=== PATIENT | female | born 1940 | race Caucasian/White ===

== ENCOUNTER 2017-07-22 07:58 | Day surgery (SDC) | payer OTHER ==
[2017-07-22] MEDS ORDERED: D5 LR 1000 ML 1,000 ML IV ONE (08:18)
[2017-07-22] MEDS ORDERED: FENTANYL INJ 100 mcg ONE (09:53)
[2017-07-22] MEDS ORDERED: VERSED ONE (09:53)
[2017-07-22] MEDS ORDERED: DIPRIVAN VIAL 10 ML ONE (09:53)
[2017-07-22 10:25] VITALS: BP 119/56
== END 2017-07-22 10:34 | disposition home or self-care (01) ==
LOC: SURG1 07:58
PROVIDERS: ATTEND Internal Medicine Gastroenterology
PROC: 0DB68ZX Excision of Stomach, Via Natural or Artificial Opening Endoscopic, Diagnostic (ICD-10-PCS; principal; 2017-07-22 11:15)
PROC: 0DB88ZX Excision of Small Intestine, Via Natural or Artificial Opening Endoscopic, Diagnostic (ICD-10-PCS; principal; 2017-07-22 11:15)
PROC: 0DJ08ZZ Inspection of Upper Intestinal Tract, Via Natural or Artificial Opening Endoscopic (ICD-10-PCS; principal; 2017-07-22 11:15)
DX: R10.13 Epigastric pain (principal); R11.0 Nausea; K21.9 Gastro-esophageal reflux disease without esophagitis; K29.60 Other gastritis without bleeding; K20.8 Other esophagitis
CPT/HCPCS: 99100; A4217; J2250; J3010; J3490; J7120

== ENCOUNTER 2017-08-26 07:13 | Day surgery (SDC) | payer OTHER ==
[2017-08-26] MEDS ORDERED: D5 LR 1000 ML 1,000 ML IV ONE (07:26)
[2017-08-26] MEDS ORDERED: DIPRIVAN VIAL 20 ML ONE (08:51)
[2017-08-26] MEDS ORDERED: HEP LOCK NEONATE 10 UNITS/1 ML 5ML ONE (09:23)
[2017-08-26 09:35] VITALS: BP 115/65
== END 2017-08-26 09:38 | disposition home or self-care (01) ==
LOC: SURG1 07:13
PROVIDERS: ATTEND Internal Medicine Gastroenterology
PROC: 0DBP8ZX Excision of Rectum, Via Natural or Artificial Opening Endoscopic, Diagnostic (ICD-10-PCS; principal; 2017-08-26 07:30)
PROC: 0DJD8ZZ Inspection of Lower Intestinal Tract, Via Natural or Artificial Opening Endoscopic (ICD-10-PCS; principal; 2017-08-26 07:30)
DX: Z85.038 Personal history of other malignant neoplasm of large intestine (principal); K62.7 Radiation proctitis; Z92.3 Personal history of irradiation
CPT/HCPCS: 99100; A4217; J1642; J3490; J7120

== ENCOUNTER 2018-02-10 07:18 | Day surgery (SDC) | payer OTHER ==
[2018-02-10] MEDS ORDERED: D5 LR 1000 ML 1,000 ML IV ONE (07:42)
[2018-02-10] MEDS ORDERED: DIPRIVAN VIAL 20 ML ONE (09:29)
[2018-02-10 10:55] VITALS: BP 120/61
== END 2018-02-10 10:20 | disposition home or self-care (01) ==
LOC: SURG1 07:18
PROVIDERS: ATTEND Internal Medicine Gastroenterology
PROC: 0DJD8ZZ Inspection of Lower Intestinal Tract, Via Natural or Artificial Opening Endoscopic (ICD-10-PCS; principal; 2018-02-10 09:00)
DX: R10.31 Right lower quadrant pain (principal); R10.32 Left lower quadrant pain; K92.1 Melena; Z85.048 Personal history of other malignant neoplasm of rectum, rectosigmoid junction, and anus; K62.7 Radiation proctitis; K62.89 Other specified diseases of anus and rectum
CPT/HCPCS: A4222; A4217; J3490; J7120